=== PATIENT | female | born 1990 | race Caucasian/White ===

== ENCOUNTER → 2025-02-16 12:14 | Outpatient (REF) | payer OTHER, SELFPAY | LOC: HWRAD 12:14 | PROVIDERS: ATTENDING PHYSICIAN Urology; FAMILY PHYSICIAN Physician Assistant Medical | DX: M62.89 Other specified disorders of muscle (principal); N39.3 Stress incontinence (female) (male); R39.198 Other difficulties with micturition | CPT/HCPCS: 76770; 76856 ==

== ENCOUNTER 2025-02-19 12:37 | Emergency (ER) | payer OTHER, SELFPAY ==
[2025-02-19 12:40] VITALS: BP 117/76
--- NOTE | 2025-02-19 13:26 | ED.GENMED ---
History of Present Illness
General
Chief Complaint: Rabies
Source: patient
Exam Limitations: none
Time Seen by Provider: 02/19/25 13:07
History of Present Illness
History of Present Illness:
34yoF with no significant past medical history presenting for a rabies vaccination. Patient was bitten by an unknown dog 2 days ago while she was walking in her neighborhood. Unfortunately, she did not obtain any contact information for the material analyst
and does not know the vaccination status of the dog. She called her PCP today and was told to go to the ED for a rabies vaccine. Last tetanus was about a year ago.
Phy Exam
General Physical Exam
General Presentation: well appearing and no apparent distress
General age: appears stated age
General Skin: warm and dry
General Habitus: normal
General Mental: alert
ENT Exam
ENT Exam: normocephalic
Pulmonary Exam
Pulmonary Exam: no respiratory distress
Neurological Exam
Neurological Exam: alert
[place] Coma Scale
Eye Opening: Spontaneous
Verbal Response: Oriented
Motor Response: Obeys Commands
GCS Total Score: 15
Skin Exam
Skin Exam: warm/dry and other (Small bite wound noted to L buttock without signs of infection. +Surrounding ecchymosis.)
Psychiatric Exam
Psychiatric Exam: normal mood/affect
Course
Orders/Labs/Results
Orders:
Orders
02/19/25 13:25
Rabies Immune Globulin/Pf [HyperRAB] 1,160 unit IM NOW STA
Rabies Vaccine (Pcec)/Pf [Rabavert Rabies Vacc W-Diluent] 2.5 unit IM .ONCE ONE
Vital Signs
Initial and Last Documented VS:
Initial Vital Signs
Temp Pulse Resp BP Pulse Ox
98.2 F 75 20 117/76 100
02/19/25 12:40 02/19/25 12:40 02/19/25 12:40 02/19/25 12:40 02/19/25 12:40
Last Documented Vital Signs
Temp Pulse Resp BP Pulse Ox
98.2 F 75 20 117/76 100
02/19/25 12:40 02/19/25 12:40 02/19/25 12:40 02/19/25 12:40 02/19/25 13:26
MDM/Problems Addressed
Differential Diagnosis Includes:
34yoF presenting for rabies vaccine after being bitten by an unknown dog 2 days ago. Small bite wound present on exam without signs of infection. Given that she does not know the contact information for the material analyst or any details about the animal,
will initiate vaccine series. Rabies vaccine and immunoglobulin administered. She was given a prescription for the remaining vaccines and advised to call the infusion center to schedule this. Offered prophylactic antibiotics which she declines.
Advised return to the ED with any signs of infection.
*Pulse Oximetry
SaO2: 100
Oxygen Mode of Delivery: Room air
Patient hypoxic: no (100%)
*Critical Care Note
Total Time (30-74mins, 75-104mins- exclusive of procedures): Not Applicable
ED Attending Note
-
Portions of this chart may have been created with voice recognition software.� Occasional wrong word or��sound alike� substitutions may have occurred due to the inherent limitations of voice recognition software.
Discharge Plan
Departure
Patient Disposition: Home (Routine Discharge)
Date of Disposition: 02/19/25
Time of Disposition: 13:26
Patient with high blood pressure during this ER visit?: No
Discharge Problem:
Dog bite of left buttock, Need for post exposure prophylaxis for rabies
Instructions: Animal Bites (DC)
Prescriptions:
New
rabies vacc,human diploid (PF) 2.5 unit recon soln
2.5 unit IM ONCE Qty: 3 0RF
Rx Instructions:
Administer vaccine on 02/22/25, 02/26/25, and 03/05/25.
Stand Alone Forms: Rabies Vaccine Post Exp Dosing
Activity Restrictions/Additional Instructions:
Please call the infusion center to schedule the remainder of your vaccinations. Return to the ER with any signs of infection.
Interventions
Interventions:
*Risk Screen - Suicide Last Done: 02/19/25 12:40
*Neglect/Abuse Screening Last Done: 02/19/25 12:40
*Nursing Disposition Last Done: 02/19/25 14:09
Discharge Date and Time
Discharge Date/Time: 02/19/25 14:31
Print Language: [id number]
[2025-02-19] MEDS: RABAVERT RABIES VACC W-DILUENT 2.5 UNIT IM (13:52)
[2025-02-19] MEDS: HyperRAB 1160 UNIT IM (13:59)
== END 2025-02-19 14:31 | disposition home or self-care (01) ==
LOC: EMR 12:37
PROVIDERS: EMERGENCY PHYSICIAN Student in an Organized Health Care Education/Training Program; FAMILY PHYSICIAN Physician Assistant Medical
DX: S31.825A Open bite of left buttock, initial encounter (principal); W54.0XXA Bitten by dog, initial encounter; Z20.3 Contact with and (suspected) exposure to rabies; Z23 Encounter for immunization
CPT/HCPCS: 99282; 90471; 96372; 90375; 90675

== ENCOUNTER 2025-02-26 08:33 | Outpatient (RCR) | payer OTHER, SELFPAY ==
[2025-02-22 14:35] VITALS: BP 99/64
[2025-02-22] MEDS: RABAVERT RABIES VACC W-DILUENT 2.5 UNIT IM (14:52)
[2025-02-26] MEDS: RABAVERT RABIES VACC W-DILUENT 2.5 UNIT IM (08:47)
[2025-02-26 08:57] VITALS: BP 98/61
== END 2025-02-26 13:22 | disposition home or self-care (01) ==
LOC: OID 08:33
PROVIDERS: ATTENDING PHYSICIAN Student in an Organized Health Care Education/Training Program; FAMILY PHYSICIAN Physician Assistant Medical
DX: Z20.3 Contact with and (suspected) exposure to rabies (principal); Z23 Encounter for immunization
CPT/HCPCS: 90471; 90675